=== PATIENT | female | born 1940 | race Caucasian/White ===

== ENCOUNTER → 2017-08-18 | Outpatient (CLI) | payer MEDICARE ==
[~2017-08-18] MED LIST: APRI0.372 PO; CALC500T8 PO; DEPA500T PO; MERC50TA PO; MULT-65 PO; PARO37.5 PO; POTA2.5T PO; VITA500T83 PO; VITACAP7 PO
--- NOTE | 2017-08-18 12:56 | RADRPT ---
EXAM DATE: 08/18/2017 12:42 PM EDT AGE/SEX: 77 years / Female INDICATIONS: Evaluate for pneumonia, pneumothorax or communicable disease. Pre op right knee replace ment. CLINICAL DATA: This is the patient's initial encounter. Patient reports that signs and symptoms have been present for 1 day and indicates a pain score of 0/10. MEDICAL/SURGICAL HISTORY: None. None. COMPARISON: No prior exams available for comparison. FINDINGS: The lungs are clear without infiltrate, nodule, or mass. There is no appreciable pleural effusion for technique. Heart and mediastinum are unremarkable. CONCLUSION: No acute cardiopulmonary disease. Electronically signed by: Kingston Avery MD 08/18/2017 12:55 PM EDT
[2017-08-18 13:00] LABS: AUTOMATED NEUTROPHIL # 5.8 TH/MM3 (1.8-7.7); BASOPHIL # 0.1 TH/MM3 (0-0.2); BASOPHIL % 0.7 % (0.0-2.0); EOSINOPHIL # 0.1 TH/MM3 (0-0.4); EOSINOPHIL % 0.9 % (0.0-4.0); HEMOGLOBIN 12.7 GM/DL (11.6-15.3); LYMPH % 23.3 % (9.0-44.0); MEAN CELL VOLUME 93.6 FL (80.0-100.0); MEAN CORPUSCULAR HEMOGLOBIN 31.2 PG (27.0-34.0); MEAN CORPUSCULAR HGB CONC 33.3 % (32.0-36.0); MEAN PLATELET VOLUME 9.6 FL (7.0-11.0); MONO % 5.7 % (0.0-8.0); MONOCYTE # 0.5 TH/MM3 (0-0.9); NEUT % 69.4 % (16.0-70.0); PLATELET COUNT 200 TH/MM3 (150-450); RED BLOOD COUNT 4.06 MIL/MM3 (4.00-5.30); RED CELL DISTRIBUTION WIDTH 16.4 % (11.6-17.2); WHITE BLOOD COUNT 8.4 TH/MM3 (4.0-11.0)
[2017-08-18 13:01] LABS: PROTHROMBIN TIME - PATIENT 10.2 SEC (9.8-11.6)
[2017-08-18 13:02] LABS: BILIRUBIN, URINE NEG (NEG); BLOOD, URINE NEG (NEG); GLUCOSE,URINE NEG (NEG); HYALINE CAST, URINE 2 /lpf (RARE); KETONE, URINE NEG (NEG); MUCUS URINE FEW /lpf (OCC); NITRITE,URINE NEG (NEG); URINE COLOR YELLOW (YELLW/STRAW); URINE LEUKOCYTE ESTERASE NEG (NEG)
[2017-08-18 13:11] LABS: BICARBONATE 26.4 MEQ/L (21.0-32.0); CALCIUM 8.5 MG/DL (8.5-10.1); CREATININE 1.25 MG/DL (0.50-1.00)
--- NOTE | 2017-08-18 15:56 | EKG ---
Date Performed: 08/18/2017 Time Performed: 11:45:32 PTAGE: 77 years EKG: Sinus rhythm POSSIBLE LEFT ATRIAL ENLARGEMENT MINIMAL ST DEPRESSION BORDERLINE ECG NO PREVIOUS TRACING DOCTOR: Mitchell Mai Interpretating Date/Time 08/18/2017 15:56:09
== END ==
LOC: CPRE 11:18
PROVIDERS: ATTEND Orthopaedic Surgery
DX: Z01.810 Encounter for preprocedural cardiovascular examination (principal); Z01.811 Encounter for preprocedural respiratory examination; Z01.812 Encounter for preprocedural laboratory examination; Z01.818 Encounter for other preprocedural examination; M17.11 Unilateral primary osteoarthritis, right knee; R94.31 Abnormal electrocardiogram [ECG] [EKG]
CPT/HCPCS: 36415; 71046; 80048; 81001; 85025; 85610; 93005

== ENCOUNTER 2017-09-02 05:09 | Inpatient (IN) | payer MEDICARE ==
--- NOTE | 2017-08-29 17:49 | MH ---
cc: Jaylan Rao MD DATE OF ADMISSION: 09/02/2017 ADMITTING DIAGNOSIS: Osteoarthritis of the right knee. HISTORY OF PRESENT ILLNESS: The patient is a 77-year-old white female who has had a longstanding history of pain involving her right knee. During the previous 8 years, she had experienced the onset of pain secondary to walking her dog and bumping her knee along the lateral aspect of the knee joint with no actual fall having occurred. She did not seek any immediate evaluation or treatment, but over the following years, continued to conform to conservative management, during which time she experienced a waxing and waning of soreness about the knee joint. She became increasingly more symptomatic with pain and later underwent orthopedic evaluation, at which time she was apparently diagnosed as having an arthritic condition and treated conservatively, which included use of anti-inflammatory medication, intraarticular steroid injection and physical therapy. Unfortunately, the patient became more symptomatic with the passage of time, experienced a frequent grinding sensation. She has subsequently resorted to taking hydrocodone for pain management. She was later seen by the undersigned physician in June of this past year and at that time, her x-ray studies did reveal hypertrophic changes along the lateral margin of the joint, especially involving the femoral condyle. The patient underwent an MRI scan, which identified severe osteoarthritis throughout the lateral compartment with complete loss of articular cartilage and a large degenerative tear of the lateral meniscus. At that time, findings and treatment options were reviewed. The pros and cons of continuing with conservative management versus operative intervention that might involve arthroscopic surgery versus total knee arthroplasty were outlined. Emphasis was made regarding the fact that the decision to proceed with surgery would be left entirely to the patient's discretion with recommendation being made that total knee arthroplasty in all likelihood would afford the patient a more long-term benefit. The patient had subsequently indicated her desire to proceed with operative treatment and had tentatively been scheduled to be admitted to the hospital in October of this past year. Unfortunately, prior to that admission, she was diagnosed as having Crohn disease, for which she did undergo a course of medical management that was extended over a several-month interval of time. Overall improvement was noted and she thus returned to the office in June of this year describing ongoing pain about her right knee. Her x-ray studies did reveal generalized degenerative changes with hypertrophic reaction more pronounced along the lateral joint line. Once again, findings and treatment options were reviewed. The patient again expressed her desire to proceed with operative intervention based upon her persistent symptoms, and in compliance with her wishes, she was scheduled for admission at this time in order that the above be accomplished. PAST MEDICAL HISTORY, HOSPITALIZATIONS AND SURGERIES: Have included small-bowel resection with a retrosigmoid resection, colonoscopy and Yanique pouch for history of small-bowel obstruction and chronic diverticulitis with later reversal of the colostomy. Surgical treatment of her right hand and wrist for traumatic injury that apparently involved some type of fracture, dislocation about the wrist joint. Abdominal hysterectomy, right inguinal herniorrhaphy, colonoscopy, podiatry surgery of her feet, hemorrhoidectomy, medical management of a nervous breakdown, and dental extraction. MEDICAL ILLNESSES: Include depression and chronic diarrhea. CURRENT MEDICATIONS: Lomotil has been taken on a p.r.n. basis, Depakote 500 mg, Paxil ER 325 mg, a multivitamin tablet, calcium 600 mg, Biotin 10,000 mcg, potassium 99 mg, vitamin B12, mercaptopurine 50 mg, Apriso 0.375 mg daily. ALLERGIES: THE PATIENT DESCRIBES A DRUG ALLERGY TO DILAUDID THAT APPARENTLY HAD BEEN ASSOCIATED WITH IRRATIONAL BEHAVIOR. She has tolerated hydrocodone and taken morphine in the past that was tolerated, but did become associated with some degree of constipation. REVIEW OF SYSTEMS: Wears glasses. No headaches, seizures, syncope. Frequent sinus congestion related to environmental irritants. No epistaxis. Diminished auditory acuity, for which bilateral hearing aids are utilized. No tinnitus. No bleeding gums. Partial upper and lower dentures. No cough, shortness of breath, upper respiratory infection, pneumonia, or tuberculosis. No angina or heart disease. Appetite good. Frequent diarrhea, especially related to fresh fruits and vegetables and fatty meats. No hepatitis, gallbladder disease or ulcers. There is a positive history of hemorrhoids. No urinary tract infection, no kidney stones. Fracture of the right wrist as described. Bilateral ankle fractures and toe fractures. Psychiatric intervention for depression. Remaining review of systems unremarkable and noncontributory. FAMILY HISTORY: The patient has been for more than 40 years. She has 2 living daughters, both indicated to be in good health. One daughter at 34 years of age with a history of breast cancer. Her family history is positive for hypertension, diabetes, heart disease, stroke, breast and uterine cancer. SOCIAL HISTORY: The patient completed a BS degree. 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 She denies active use of tobacco for many years, but had been less than 1 pack per day user for at least 19 years in the past. Ethanol consumption on a very limited basis. PHYSICAL EXAMINATION: VITAL SIGNS: Height 5 feet 1 inch, weight 137 pounds. GENERAL: An alert, oriented, and responsive 77-year-old white female who sits quietly upon the examination table with no apparent distress. HEAD, EARS, EYES, NOSE, AND THROAT: Pupils are equally round and reactive to light. Extraocular movements full. Sclerae clear. Nares clear. External auditory canals clear. Dental intact with dental implants in place. Mucous membranes pink and moist. Pharynx clear. NECK: Supple. Active range of motion without appreciable pain. Carotid pulse palpable bilaterally. Trachea midline. Thyroid without thyroid enlargement. LUNGS: Clear to auscultation and percussion. No CVA tenderness. No discomfort throughout the dorsolumbar spine. HEART: Regular rate and rhythm. No murmur or gallop. ABDOMEN: Soft, nontender, bowel sounds present. PELVIC: Per primary care physician. EXTREMITIES: Right knee: There is a mild fullness about the knee consistent with redundancy of soft tissue. No appreciable intraarticular effusion. Lateral joint line tenderness without palpable deformity. Apprehension and compression sign negative. Limited mobility in the 100+ degree range of flexion with pain at the extreme of motion. No collateral ligamentous instability. Cesar test and drawer sign negative. Pivot shift and Catarina sign minimally positive for lateral compartment pain. Straight leg raising unremarkable at 80 degrees. Satisfactory mobility of the right hip with no associated pain. Mild antalgic gait. NEUROLOGIC: Cranial nerves 2-12 grossly intact. IMPRESSION: Osteoarthritis, right knee. PLAN: Right total knee arthroplasty. The nature of the planned surgical procedure, the potential complications and risks associated, the expectations of surgery and the consent form were thoroughly reviewed with the patient prior to her admission to the hospital. Noy has indicated her full understanding regarding all of the above and given consent to proceed with treatment as outlined. Medical evaluation and clearance for surgery completed by her primary care physician, Dr. Vincent Moncada. Jaylan Rao MD NBS/SB , 05:14 PM , 05:48 PM
[2017-09-02] VITALS (9 sets, daily range): BP systolic 122–174; BP diastolic 59–81; PULSE 52–83; RESP 14–17; TEMP 94.5–98.2; O2SAT 95–99
[~2017-09-02] VITALS: Ht 154.9 cm; Wt 62.0 kg
[2017-09-02] MEDS ORDERED: SODIUM CHLORID 0.9% 500 ML IV PRN (05:30)
[2017-09-02] MEDS ORDERED: CHLORHEXIDINE GLUCONATE 2 % 1 PACK (2 CLOTHS) TOPICAL PRN (05:30)
[2017-09-02] MEDS ORDERED: POVIDONE IODINE 5% (ANTISEPSIS KIT) 4 APPLICATIONS EACH NARE PRN (05:30)
[2017-09-02] MEDS ORDERED: LACTATED RINGER'S 1000 ML IV PRN (05:30)
[2017-09-02] MEDS ORDERED: METOPROLOL TARTRATE 25 MG TAB PO PRN (05:30)
[2017-09-02] MEDS ORDERED: TRANEXAMIC ACID 1 GM PRIOR TO PROCEDURE IV SCH ×2 (05:45)
[2017-09-02] MEDS ORDERED: TRANEXAMIC ACID 1 GM POST-OP IV SCH ×2 (05:45)
[2017-09-02] MEDS ORDERED: POVIDONE IODINE 7.5% SCRUB 118 ML BOTTLE TOPICAL SCH (05:45)
[2017-09-02] MEDS ORDERED: ceFAZolin 2 GM PREMIX 50 ML IV SCH (05:45)
[2017-09-02] MEDS ORDERED: DIPH25CA PO (05:56)
[2017-09-02] MEDS ORDERED: LOMO2.5T PO (05:56)
[2017-09-02] MEDS ORDERED: ceFAZolin INJ 1,000 MG VIAL ONE (05:58)
[2017-09-02] MEDS ORDERED: ACETAMINOPHEN 1000 MG/100 ML 100 ML IV ONE (06:19)
[2017-09-02] MEDS ORDERED: FAMOTIDINE 20 MG/2 ML VIAL ONE (06:20)
[2017-09-02] MEDS ORDERED: MIDAZOLAM HCL 2 MG/2 ML VIAL ONE (06:20)
[2017-09-02] MEDS ORDERED: BUPIVACAINE HCL PF 0.5% 30 ML VIAL ONE (06:27)
[2017-09-02] MEDS ORDERED: BUPIVACAINE PF 0.75% DEX-WATER INJ 2 ML AMP ONE (06:32)
[2017-09-02] MEDS ORDERED: EPINEPHrine HCL PF/SF (1:1000) 1 MG/ML AMP I-OCULAR ONE (06:32)
[2017-09-02] MEDS ORDERED: SODIUM CHLORIDE 0.9% INJ 50 ML ONE (06:32)
[2017-09-02] MEDS ORDERED: DEXMEDETOMIDINE HCL 200 MCG/2 ML VIAL ONE ×2 (06:32→06:33)
[2017-09-02] MEDS ORDERED: ROPIVACAINE 0.5% P-ARTICULR SCH ×5 (07:00)
[2017-09-02] MEDS ORDERED: [UNRECOGNIZED DRUG - OTHER] P-ARTICULR SCH ×5 (07:00)
[2017-09-02] MEDS ORDERED: KETOROLAC P-ARTICULR SCH ×5 (07:00)
[2017-09-02] MEDS ORDERED: DO NOT ADM ANY ANTICOAGULANT DRUGS PRN (09:14)
[2017-09-02] MEDS ORDERED: ACETAMINOPHEN/HYDROcodone 325 MG/5 MG TAB PO PRN (09:30)
[2017-09-02] MEDS ORDERED: PHARMACY INFORMATION XX ONE (09:30)
[2017-09-02] MEDS ORDERED: Post-op Orders (for Pharmacy) XX ONE (09:30)
[2017-09-02] MEDS ORDERED: diphenhydrAMINE HCL 25 MG CAP PO PRN ×2 (09:30→15:15)
[2017-09-02] MEDS ORDERED: ZOLPIDEM TARTRATE 5 MG TAB PO PRN (09:30)
[2017-09-02] MEDS ORDERED: DOCUSATE SODIUM 100 MG CAP PO PRN (09:30)
[2017-09-02] MEDS ORDERED: ONDANSETRON ODT 4 MG TAB SL PRN (09:30)
[2017-09-02] MEDS ORDERED: NALOXONE HCL 0.4 MG/ML AMP IV PUSH PRN (09:30)
[2017-09-02] MEDS ORDERED: MORPHINE SULFATE 30 MG/30 ML PCA IV SCH (09:30)
[2017-09-02] MEDS ORDERED: ACETAMINOPHEN 325 MG TAB PO PRN (09:30)
[2017-09-02] MEDS: DEXT 5%-NACL 0.45% 1000 ML INJ 1,000 ML IV SCH ×2 (10:00→17:27)
--- NOTE | 2017-09-02 10:08 | MP ---
cc: Jaylan Rao MD DATE OF OPERATION: 09/02/2017 DATE OF OPERATION: 09/02/2017 PREOPERATIVE DIAGNOSIS: Osteoarthritis of the right knee. POSTOPERATIVE DIAGNOSIS: Osteoarthritis of the right knee. PROCEDURE PERFORMED: Right total knee arthroplasty. SURGEON: Jaylan Rao MD ANESTHESIA: Spinal. INDICATIONS: A 77-year-old white female with a longstanding history of right knee pain dating back at least 8 years when she had experienced onset of her symptoms secondary to walking activity and blunt trauma to the knee with no actual fall having occurred. She did not seek any immediate evaluation at that time, but over the following years continued to conform to conservative management during which time she experienced a waxing and waning soreness about the knee. She became increasingly more symptomatic with pain and later on the orthopedic evaluation was diagnosed as having an arthritic condition for which she was treated conservatively, which included use of anti-inflammatory medication, intraarticular steroid injection and physical therapy. Unfortunately, she became more symptomatic with the passage of time, experienced a frequent grinding sensation. She subsequently resorted to taking hydrocodone for pain management. She was later seen by the undersigned physician in June of this past year and at that time her x-ray studies did reveal hypertrophic changes along the lateral margin of the joint, especially involving the femoral condyle. She later underwent an MRI scan, which identified severe osteoarthritis throughout the lateral compartment with complete loss of articular cartilage and large degenerative tear involving the lateral meniscus. Findings and treatment options were reviewed. The pros and cons of continuing with conservative management versus operative intervention that would involve either arthroscopic surgery versus total knee arthroplasty were outlined. Emphasis was made regarding the fact that the decision to proceed with surgery would be left entirely to the patient's discretion with the recommendation being made that total knee arthroplasty would in all likelihood afford the patient a more favorable long-term benefit. She later indicated her desire to proceed with operative treatment and had tentatively been scheduled to be admitted to the hospital in October of this past year. Unfortunately, prior to that admission, she was diagnosed as having Crohn's disease for which she underwent an extended course of medical management over several months. Overall, medical improvement was noted but during this time she remained symptomatic with pain about her right knee for which she returned to the office in June describing ongoing pain. Her x-ray studies did reveal generalized degenerative changes with hypertrophic reaction along the lateral joint line. Once again findings and treatment options were reviewed. The patient expressed her desire to proceed with surgical treatment. Based upon her persistent symptoms and in compliance with her wishes, she was scheduled for admission in order that total knee arthroplasty be accomplished. FORMAT: Following induction of satisfactory spinal anesthesia as completed per the Department of Anesthesia, a tourniquet was established around the proximal portion of the right lower extremity. The extremity proper was isolated with a U-drape, thereafter being prepped with Betadine solution and draped into a sterile field in the routine manner. Prior to initiation of the actual procedure, the standard timeout protocol was completed. All parameters were appropriately addressed and confirmed by operating room personnel. The extremity was elevated for approximately 1 minute and the tourniquet thus inflated to 250 mmHg pressure. A sharp skin incision was initiated midline over the anterior aspect of the knee and developed through underlying subcutaneous tissue with hemostasis maintained by electrocautery. By deepening dissection, the anterior capsule was exposed, a medial capsulotomy completed and the patella subluxed in a lateral orientation. Examination of the joint space revealed degenerative changes being most pronounced about the lateral compartment where there was complete erosion of articular cartilage and subchondral bone exposed. Degenerative changes extended onto the lateral tibial plateau. The articular surface of the patella was resected with power saw. The 3 holed guide was utilized for establishing post-holes. The anterior cruciate ligament as well as medial and lateral meniscus structures were sharply excised. A centering hole was placed in the distal aspect of the femur, allowing positioning of the intramedullary guide. The distal femoral cutting jig was attached and the distal femur resected. AP measurement noted 62.5 mm sizing to be appropriate. The matching cutting block was positioned. Anterior, posterior and chamfer cuts were completed. Tibial plateau was thereafter subluxed in an anterior orientation allowing positioning of the extramedullary guide. The tibial plateau was resected and measured with 71 mm sizing determined to be satisfactory. A trial reduction followed utilizing a 62.5 mm anatomic femoral component, a 71 mm tibial base with a 10 mm bearing insert. The knee was readily reduced and carried through a passive range of motion with stability being demonstrated at both 0 and 90 degrees flexed posture to varus and valgus stress. Orientation was confirmed as being appropriate with measurement of the pelvic guide through the mechanical axis of the knee. Trial reduction followed utilizing a 31 mm standard patellar button. Once again good tracking was noted with no tendency towards subluxation. All trial components being removed, the remaining portion of the proximal tibia was prepared for insertion of the permanent component. An autogenous bone plug was inserted into the distal femoral guide hole and thereafter a preparation of Palacos bone cement was utilized in inserting knee components in a sequential fashion, which included a 71 mm fixed cruciate tibial plate, to which a 10 mm Vanguard tibial bearing insert was secured with a locking joy. A 62.5 mm Vanguard femoral component was firmly seated onto the distal femur, excess cement being removed and thereafter the 31 mm standard 3 post-patellar button was attached and maintained in place with patellar clamp while cement hardening was completed. Final range of motion assessment noted good tracking and stability throughout the knee. Irrigation repeated with hemostasis maintained. Autovac drain tubes were inserted through superior stab wounds. The capsule was repaired with 0 Vicryl suture. The remaining portion of the wound was closed in layers in the routine manner, skin margins being reapproximated with a running subcuticular 3-0 Vicryl suture over which Steri-Strips were applied. Xeroform gauze and a bulky dry sterile dressing placed. Tourniquet deflated after 41 minutes of tourniquet time, the extremity being supported in a canvas knee splint. Anesthesia was discontinued and the patient thus transferred to a hospital bed and returned to the recovery room in satisfactory condition, having tolerated her operative procedure well. Estimated blood loss was approximately 100 mL as determined per Anesthesia. All implants were of the [employer] pavilion cutter. MD ERNST Jewell/SB , 09:25 AM , 10:07 AM
[2017-09-02] MEDS ORDERED: TRANEXAMIC ACID INJ 1,000 MG in SODIUM CHLORIDE 0.9% INJ 100 ML IV SCH (10:14)
--- NOTE | 2017-09-02 10:44 | RADRPT ---
EXAM DATE: 09/02/2017 10:37 AM EDT AGE/SEX: 77 years / Female INDICATIONS: Post op right knee surgery. CLINICAL DATA: This is the patient's initial encounter. Patient reports that signs and symptoms have been present for 1 day and indicates a pain score of 0/10. MEDICAL/SURGICAL HISTORY: None. None. COMPARISON: No prior exams available for comparison. FINDINGS: AP and lateral views of the right knee demonstrate metallic hardware in place at the distal femur and proximal tibia with a radiolucent patellar component. Surgical drain is present. No unexpected findi ng is seen. CONCLUSION: Expected changes following recent right total knee arthroplasty, as above. Electronically signed by: Vincent Ramirez MD 09/02/2017 10:42 AM EDT
[2017-09-02] MEDS ORDERED: LIDOCAINE HCL 1% PF 5 ML SYRINGE OTHER ONE (12:00)
[2017-09-02] MEDS ORDERED: LACTATED RINGER'S 1000 ML INJ 1,000 ML IV ONE (12:00)
[2017-09-02] MEDS ORDERED: ePHEDrine/NS 25 MG/5 ML SYRINGE IV ONE (12:00)
[2017-09-02] MEDS ORDERED: GLYCOPYRROLATE 1 MG/5 ML SYRINGE IV PUSH ONE (12:00)
[2017-09-02] MEDS ORDERED: PROPOFOL 200 MG/20 ML AMP IV ONE (12:00)
--- NOTE | 2017-09-02 13:06 | HHI.FF ---
Face to Face Verification Diagnosis: (1) DJD (degenerative joint disease) of knee Physical Therapy Gait training Knee: Total knee, Protocol: Right, Full weight bearing Right LE Weight Bearing: WB as tolerated Right LE Range of Motion: Active ROM Nursing Dressing Changes: Daily dressing change I have seen patient Noy Hunter on 09/02/17. My clinical findings support the need for the requested home health care services because: Limited ability to care for self High risk of falls I certify that my clinical findings support that this patient is homebound because: Post-op weakness Unsteady gait/balance Unsafe to leave home unassisted Jaylan Rao MD Sep 02, 2017 13:06
[2017-09-02] MEDS: PCA - TOTAL MG MORPHINE DELIVERED PER SHIFT SCH ×2 (14:00→22:00)
[2017-09-02] MEDS ORDERED: NON-FORMULARY DRUG (Ascorbic Acid ER (Vitamin C ER) 1,000 MG) PO SCH (15:15)
[2017-09-02] MEDS ORDERED: NON-FORMULARY DRUG (Multiple Vitamin (Multi-Vitamin Daily) 1 TAB) PO SCH (15:15)
[2017-09-02] MEDS ORDERED: MESALAMINE PO SCH (15:15)
[2017-09-02] MEDS ORDERED: NON-FORMULARY DRUG (B-Complex Vitamins (B Complex) 1 CAP) PO SCH (15:15)
[2017-09-02] MEDS ORDERED: DIPHENOXYLATE/ATROPINE 2.5 MG/0.025 MG TAB PO PRN (15:15)
--- NOTE | 2017-09-02 15:24 | PD.CONS ---
[facility] By Dr. Rao Reason for Consult Assist with medical management. Primary Care Physician Vincent Moncada, Diagnoses: History of Present Illness Patient is a 77-year-old female with primary medical history osteo-arthritis, depression, small bowel resection with rectosigmoid resection, Davila's pouch for small bowel obstruction and chronic diverticulitis with reversal colostomy who initially came into the hospital for an elective surgery secondary to severe right knee osteoarthritis with pain. She is status post right total knee arthroplasty by Dr. Rao. Consulted for assistance with medical management. Patient seen and examined today. Daughter at bedside. Reports she is doing well. States she has no pain, but on the lateral side of the knee she felt like a 2/10. Denies SOB/ dyspnea. Denies chest pain, palpitations, headaches, dizziness. Denies fevers, chills, n/v. Denies dysuria. Patient reports history of colitis. Daughter states that she has been taking Lomotil and mercaptopurine to control the colitis. States that she always has been diarrhea. She follows Dr. Reeder in the outpatient as her GI. She has been tested according to daughter multiple times of Clostridium difficile and has been negative. But states that if she ever gets tested at the hospital before starting her on any antibiotic we will need to consult with Dr. Reeder. Review of Systems Except as stated in HPI: all other systems reviewed are Neg Past Family Social History Allergies: Coded Allergies: hydromorphone (Verified Allergy, Severe, Hallucinations, 09/02/17) Past Medical History Chronic diverticulitis status post bowel resection Osteoarthritis Anxiety Depression Past Surgical History Small bowel resection with retrosigmoid resection Davila's pouch for history of small bowel obstruction Chronic diverticulitis with reversal of colostomy Right hand surgery Abdominal hysterectomy Right inguinal herniorrhaphy Colonoscopy Hemorrhoidectomy Foot surgery Reported Medications Reported Meds & Active Scripts Active Reported Diphenhydramine (Diphenhydramine HCl) 25 Mg Cap 25 Mg PO HS PRN Lomotil (Diphenoxylate-Atropine) 2.5-0.025 Mg Tab 1 Tab PO Q6H PRN Vitamin C ER (Ascorbic Acid) 500 Mg Saman 1,000 Mg PO DAILY Potassium Gluconate 550 Mg (90 Mg) Tab 1 Tab PO DAILY B Complex (B-Complex Vitamins) 1 Cap 1 Cap PO DAILY Multi-Vitamin Daily (Multiple Vitamin) 1 Tab Tab 1 Tab PO DAILY Calcium Oyster Shell (Calcium Carbonate) 1,250 Mg Tab 1,250 Mg PO DAILY NEB 1,250 mg calcium carbonate (500 mg elemental calcium) Paroxetine ER (Paroxetine HCl) 37.5 Mg Tab 37.5 Mg PO DAILY Depakote DR (Divalproex Sodium) 500 Mg Tabdr 500 Mg PO BID Mercaptopurine 50 Mg Tab 50 Mg PO DAILY Apriso (Mesalamine) 0.375 Gm Caper 4 Cap PO DAILY Active Ordered Medications Current Medications Medications (Trade) Dose Ordered Sig/Nancy Route Start Time Stop Time Status Last Admin Lactated Ringer's 1,000 ml @ 30 mls/hr Q24H PRN IV 09/02/17 05:30 09/05/17 05:29 09/02/17 06:00 Sodium Chloride 500 ml @ 30 mls/hr [id number] PRN IV 09/02/17 05:30 09/05/17 05:29 (Lopressor) 25 mg UTILITY LOCATOR PRN PO 09/02/17 05:30 09/05/17 05:29 (Betadine 5% Antisepsis Kit) 1 applic UTILITY LOCATOR PRN EACH NARE 09/02/17 05:30 09/05/17 05:29 09/02/17 06:00 (Chlorhexidine 2% Cloth) 3 pack UTILITY LOCATOR PRN TOPICAL 09/02/17 05:30 09/05/17 05:29 09/02/17 05:30 (Betadine 7.5% Scrub) 1 applic ONCE TOPICAL 09/02/17 05:45 09/05/17 05:44 09/02/17 06:00 Cefazolin Sodium/ Dextrose 50 ml @ 100 mls/hr UTILITY LOCATOR IV 09/02/17 05:45 09/05/17 05:44 09/02/17 07:25 Ropivacaine 24.63 ml/Ketorolac Tromethamine 30 mg/Epinephrine HCl 0.5 mg/ Clonidine 80 mcg/ Sodium Chloride 67 ml @ 134 mls/hr ONCE P-ARTICULR 09/02/17 07:00 09/03/17 06:59 09/02/17 07:47 Cefazolin Sodium 1000 mg/Sodium Chloride 100 ml @ 200 mls/hr Q6H IV 09/02/17 13:00 09/03/17 01:29 09/02/17 12:59 ([place] 5-325 Mg) 1 tab Q4H PRN PO 09/02/17 09:30 ([place] 5-325 Mg) 2 tab Q4H PRN PO 09/02/17 09:30 (Tylenol) 650 mg Q6H PRN PO 09/02/17 09:30 (Zofran Odt) 4 mg Q6H PRN SL 09/02/17 09:30 (Colace) 100 mg BID PRN PO 09/02/17 09:30 (Ambien) 5 mg HS PRN PO 09/02/17 09:30 (Narcan Inj) 0.4 mg UNSCH PRN IV PUSH 09/02/17 09:30 (Benadryl) 25 mg Q6H PRN PO 09/02/17 09:30 (Morphine 1 Mg/ ml HAZARD WASTE HANDLER) 30 mg UNSCH IV 09/02/17 09:30 09/04/17 09:29 09/02/17 11:08 HAZARD WASTE HANDLER Dosage Infused (Pha) 1 Q8HR .XX 09/02/17 14:00 09/04/17 13:59 Dextrose/Sodium Chloride 1,000 ml @ 125 mls/hr Q8H IV 09/02/17 09:27 09/02/17 10:00 ([facility] Nursing Information) ALL NURSING DEPARTME... UNSCH PRN .XX 09/02/17 09:14 09/03/17 09:13 (Oscal) 1,250 mg DAILY NEB PO 09/03/17 08:00 UNV (Benadryl) 25 mg HS PRN PO 09/02/17 15:15 UNV (Lomotil Tab) 1 tab Q6H PRN PO 09/02/17 15:15 UNV (Depakote Dr) 500 mg BID PO 09/02/17 21:00 UNV (Purinethol) 50 mg DAILY PO 09/02/17 15:15 UNV (Paxil Cr) 37.5 mg DAILY PO 09/02/17 15:15 UNV Non-Formulary Medication 1,000 mg DAILY PO 09/02/17 15:15 UNV Non-Formulary Medication 1 cap DAILY PO 09/02/17 15:15 UNV Non-Formulary Medication 4 cap DAILY PO 09/02/17 15:15 UNV Non-Formulary Medication 1 tab DAILY PO 09/02/17 15:15 UNV Non-Formulary Medication 1 tab DAILY PO 09/03/17 09:00 UNV Family History Mother had diabetes. Father had a stroke. Both parents of aneurysm Social History Very rare alcohol use Former smoker, 1 pack per day 19 years Denies illicit drug Physical Exam Vital Signs Vital Signs Date Time Temp Pulse Resp B/P (MAP) Pulse Ox O2 Delivery O2 Flow Rate FiO2 09/02/17 12:40 56 14 122/73 (89) 96 09/02/17 12:33 99 Nasal Cannula 2.00 09/02/17 12:10 61 14 137/71 (93) 99 Nasal Cannula 2 09/02/17 11:08 14 09/02/17 11:00 63 14 148/79 (102) 100 Nasal Cannula 2 09/02/17 10:00 60 14 125/58 (80) 100 Nasal Cannula 2 09/02/17 09:45 61 14 100/55 (70) 100 Nasal Cannula 2 09/02/17 09:30 64 14 102/58 (73) 98 Nasal Cannula 2 09/02/17 09:15 96.5 70 14 110/59 (76) 95 Nasal Cannula 2 09/02/17 06:15 52 09/02/17 05:58 97.7 52 20 175/83 (113) 100 Physical Exam GENERAL: This is a well-nourished, well-developed patient, in no apparent distress. SKIN: Warm and dry. HEENT: Normocephalic. Pupils equal round and reactive. Nose without bleeding. Airway patent. NECK: Trachea midline. No JVD. Supple. CARDIOVASCULAR: Regular rate and rhythm without murmurs, gallops, or rubs. RESPIRATORY: Clear to auscultation. Breath sounds equal bilaterally. No wheezes , rales, or rhonchi. GASTROINTESTINAL: Abdomen soft, non-tender, nondistended. Bowel Sounds normoactive x4. MUSCULOSKELETAL: Extremities without clubbing, cyanosis. Right lower extremity Steve wrap with Hemovac in place. Trace edema right lower extremity NEUROLOGICAL: Awake and alert. Oriented to time, place, person. No focal neuro deficit. Moves all extremities. Normal speech. Imaging Last Impressions Knee X-Ray 09/02/1728 Signed Impressions: CONCLUSION: Expected changes following recent right total knee arthroplasty, as above. Assessment and Plan Assessment and Plan Patient is a 77-year-old female with primary medical history osteo-arthritis, depression, small bowel resection with rectosigmoid resection, Davila's pouch for small bowel obstruction and chronic diverticulitis with reversal colostomy who initially came into the hospital for an elective surgery secondary to severe right knee osteoarthritis with pain. She is status post right total knee arthroplasty by Dr. Rao. Consulted for assistance with medical management. Status post right total knee arthroplasty by Dr. rao -Weightbearing status by orthopedic surgeon -Physical therapy eval and treat -Pain management Colitis Chronic diarrhea -Continue home medication Lomotil, mercaptopurine -Monitor for worsening diarrhea, may send stool for C. difficile if it is worsening Depression, anxiety -Continue Depakote, paroxetine DVT prop SCDs, chemical prophylaxis by orthopedic surgeon Code Status Full code Discussed Condition With Patient, nursing, daughter DannaJorgehitesh KENT Sep 02, 2017 15:24
[2017-09-02] MEDS ORDERED: PILL SPLITTER OTHER PRN (15:45)
[2017-09-02] MEDS: PARoxetine HCL 37.5 MG CONTROLLED RELEASE TAB PO SCH (18:00)
[2017-09-02] MEDS: MERCAPTOPURINE 50 MG TAB PO SCH (18:02)
[2017-09-02] MEDS: ASCORBIC ACID 500 MG TAB PO SCH (21:10)
[2017-09-02] MEDS: DIVALPROEX DR 500 MG TABEC PO SCH (21:10)
[2017-09-03] MEDS: DEXT 5%-NACL 0.45% 1000 ML INJ 1,000 ML IV SCH ×3 (01:27→17:27)
[2017-09-03 04:35] VITALS: BP 98/57; PULSE 78; RESP 17; TEMP 99.8; O2SAT 98
[2017-09-03 05:22] LABS: HEMATOCRIT 28.1 % (35.0-46.0); HEMOGLOBIN 9.6 GM/DL (11.6-15.3)
[2017-09-03 05:51] LABS: CALCIUM 7.5 MG/DL (8.5-10.1)
[2017-09-03] MEDS: PCA - TOTAL MG MORPHINE DELIVERED PER SHIFT SCH ×3 (06:06→22:00)
[2017-09-03] MEDS ORDERED: HYDR-3516 PO (06:22)
[2017-09-03] MEDS ORDERED: ASPI-183 PO (06:22)
[2017-09-03] MEDS ORDERED: WALKER WHEELS/F1 MIS (06:24)
[2017-09-03 08:00] VITALS: BP 108/57; PULSE 81; RESP 17; TEMP 98.6; O2SAT 96
[2017-09-03] MEDS: MULTIVITAMIN TAB PO SCH (08:33)
[2017-09-03] MEDS: CALCIUM CARBONATE 1.25 GM (CA 500 MG) TAB PO SCH (08:33)
[2017-09-03] MEDS: VITAMIN B COMPLEX/VIT C TAB PO SCH (08:33)
[2017-09-03] MEDS: PARoxetine HCL 37.5 MG CONTROLLED RELEASE TAB PO SCH (08:33)
[2017-09-03] MEDS: DIVALPROEX DR 500 MG TABEC PO SCH ×2 (08:33→20:09)
[2017-09-03] MEDS: ASCORBIC ACID 500 MG TAB PO SCH ×2 (08:34→20:09)
[2017-09-03] MEDS: MERCAPTOPURINE 50 MG TAB PO SCH (08:36)
[2017-09-03] MEDS ORDERED: [UNRECOGNIZED DRUG - OTHER] PO SCH (09:00)
[2017-09-03] MEDS ORDERED: NON-FORMULARY DRUG (Potassium Gluconate 1 TAB) PO SCH (09:00)
[2017-09-03] MEDS ORDERED: [UNRECOGNIZED DRUG - OTHER] PO SCH (09:00)
--- NOTE | 2017-09-03 09:05 | HHI.PR ---
Subjective Remarks Follow-up visit status post right total knee arthroplasty, colitis with chronic diarrhea secondary to multiple bowel resections, depression, anxiety. Patient seen and examined today. Daughter at the bedside. Reports she is doing well. States pain is manageable. States that she had an episode of confusion last night possibly aggravated by Ambien use. Requesting for Ambien to be discontinued. States she has wet the bed and had urinated over the place last night. Otherwise, denies pain and discomfort. Denies SOB/ dyspnea. Denies chest pain, palpitations, headaches, dizziness. Denies fevers, chills, n/v/d. Denies dysuria. Objective Vitals Vital Signs Date Time Temp Pulse Resp B/P (MAP) Pulse Ox O2 Delivery O2 Flow Rate FiO2 09/03/17 07:01 Room Air 09/03/17 06:06 18 09/03/17 04:35 99.8 78 17 98/57 (71) 98 09/02/17 23:15 98.2 72 17 174/81 (112) 96 09/02/17 22:00 18 09/02/17 21:26 97 09/02/17 20:25 97.4 62 16 149/72 (97) 97 09/02/17 15:59 97 21 09/02/17 15:45 94.5 64 16 122/79 (93) 95 09/02/17 12:40 56 14 122/73 (89) 96 09/02/17 12:33 99 Nasal Cannula 2.00 09/02/17 12:10 61 14 137/71 (93) 99 Nasal Cannula 2 09/02/17 11:08 14 09/02/17 11:00 63 14 148/79 (102) 100 Nasal Cannula 2 09/02/17 10:00 60 14 125/58 (80) 100 Nasal Cannula 2 09/02/17 09:45 61 14 100/55 (70) 100 Nasal Cannula 2 09/02/17 09:30 64 14 102/58 (73) 98 Nasal Cannula 2 09/02/17 09:15 96.5 70 14 110/59 (76) 95 Nasal Cannula 2 I/O 09/02/17 09/02/17 09/02/17 09/03/17 09/03/17 09/03/17 07:00 15:00 23:00 07:00 15:00 23:00 Intake Total 1200 ml 360 ml Output Total 700 ml 120 ml 150 ml Balance 500 ml -120 ml 210 ml Intake Oral 360 ml Other 1200 ml Output Urine Total 600 ml Drainage Total 120 ml 150 ml Estimated Blood Loss 100 ml # Voids 5 # Bowel Movements 0 Result Diagram: 09/03/17 0437 09/03/17 0437 Imaging Last Impressions Knee X-Ray 09/02/17 6530 Signed Impressions: CONCLUSION: Expected changes following recent right total knee arthroplasty, as above. Objective Remarks GENERAL: This is a well-nourished, well-developed patient, in no apparent distress. SKIN: Warm and dry. HEENT: Normocephalic. Pupils equal round and reactive. Nose without bleeding. Airway patent. NECK: Trachea midline. No JVD. Supple. CARDIOVASCULAR: Regular rate and rhythm without murmurs, gallops, or rubs. RESPIRATORY: Clear to auscultation. Breath sounds equal bilaterally. No wheezes , rales, or rhonchi. GASTROINTESTINAL: Abdomen soft, non-tender, nondistended. Bowel Sounds normoactive x4. MUSCULOSKELETAL: Extremities without clubbing, cyanosis. Right lower extremity Steve wrap with Hemovac in place scant serosanguineous drain. Trace edema right lower extremity NEUROLOGICAL: Awake and alert. Oriented to time, place, person. No focal neuro deficit. Moves all extremities. Normal speech. A/P Assessment and Plan Patient is a 77-year-old female with primary medical history osteo-arthritis, depression, small bowel resection with rectosigmoid resection, Davila's pouch for small bowel obstruction and chronic diverticulitis with reversal colostomy who initially came into the hospital for an elective surgery secondary to severe right knee osteoarthritis with pain. She is status post right total knee arthroplasty by Dr. Roblero. Consulted for assistance with medical management. Status post right total knee arthroplasty by Dr. roblero -Weightbearing status by orthopedic surgeon -Physical therapy eval and treat -Pain management Colitis Chronic diarrhea -Continue home medication Lomotil, mercaptopurine, mesalamine -Patient may use own home medications -Monitor for worsening diarrhea, may send stool for C. difficile if it is worsening Depression, anxiety -Continue Depakote, paroxetine -Discontinue Ambien use for as needed insomnia. DVT prop SCDs, chemical prophylaxis by orthopedic surgeon Stable from Hospitalist standpoint. We will sign off. Reconsult as needed. Clear for discharge Discharge Planning Plan to DC home with home health care when cleared by orthopedic surgeon. Jim Clay Sep 03, 2017 9:05 am
[2017-09-03 09:30] VITALS: BP 86/54; PULSE 74; O2SAT 96
[2017-09-03 12:00] VITALS: BP 93/54; PULSE 83; RESP 17; TEMP 98.6; O2SAT 96
[2017-09-03 16:00] VITALS: BP 118/63; PULSE 85; RESP 18; TEMP 98.8; O2SAT 96
[2017-09-03] MEDS: ACETAMINOPHEN/HYDROcodone 325 MG/5 MG TAB PO PRN (20:09)
[2017-09-03 20:50] VITALS: BP 100/55; PULSE 73; RESP 17; TEMP 98.1; O2SAT 93; O2SAT 94
[2017-09-04 00:55] VITALS: BP 139/64; PULSE 69; RESP 17; TEMP 98; O2SAT 99
[2017-09-04] MEDS: ACETAMINOPHEN/HYDROcodone 325 MG/5 MG TAB PO PRN ×2 (01:12→08:28)
[2017-09-04] MEDS: DEXT 5%-NACL 0.45% 1000 ML INJ 1,000 ML IV SCH ×3 (01:27→10:23)
[2017-09-04 04:40] VITALS: BP 93/52; PULSE 63; RESP 17; TEMP 98.1; O2SAT 93
[2017-09-04] MEDS: PCA - TOTAL MG MORPHINE DELIVERED PER SHIFT SCH (06:00)
--- NOTE | 2017-09-04 06:58 | MD ---
cc: Jaylan Rao MD, John R DO DATE OF DISCHARGE: 09/04/2017 ADMITTING DIAGNOSIS: Osteoarthritis of the right knee. DISCHARGE DIAGNOSIS: Osteoarthritis of the right knee. HISTORY: The patient is a 77-year-old white female with a longstanding history of right knee pain extending back at least 8 years when she had noted at the onset of her symptoms secondary to walking her dog and bumping her knee without an actual fall occurring. She did not seek any immediate evaluation and treatment over the following years was primarily conservative in nature during which time the patient described a waxing and waning of soreness about her knee. She became increasingly more symptomatic with pain and later underwent orthopedic evaluation and was diagnosed as having an arthritic condition for which she was treated conservatively, which included anti-inflammatory medication, intraarticular steroid injection and physical therapy. Unfortunately, she became more symptomatic with the passage of time experiencing a frequent grinding sensation. She had begun taking hydrocodone for pain management. She was later seen by the undersigned physician in June of this past year and at that time, her x-ray studies did reveal hypertrophic changes along the lateral margin of the joint, especially involving the femoral condyle. A subsequent MRI scan identified severe osteoarthritis throughout the lateral compartment and complete loss of articular cartilage and a large degenerative tear involving the lateral meniscus. At that time, the findings were reviewed and treatment options discussed. The pros and cons of continuing with conservative management versus operative intervention that would involve arthroscopic surgery as opposed to total knee arthroplasty were outlined. Emphasis was made regarding the fact that the decision to proceed with surgery would be left entirely to the patient's discretion with recommendation being made for total knee arthroplasty as being a more favorable course of management for long-term benefit. The patient subsequently indicated her desire to proceed with operative treatment and had tentatively been scheduled to be admitted in October this past year. Unfortunately, prior to that time, she was diagnosed with Crohn's disease for which she did not undergo a course of medical management that extended over several months. Her medical condition did improve, but her knee symptoms persisted and she later returned to the office for further disposition, at which time x-ray studies revealed degenerative changes with hypertrophic reaction more pronounced along the lateral joint line. Once again, findings and treatment options were reviewed. At that time, the patient expressed her desire to proceed with surgery as had previously been planned and in compliance with her wishes, she was scheduled for admission in order that the above be accomplished. Her physical examination at the time of admission revealed a mild fullness about the right knee consistent with redundancy of soft tissue. There was no appreciable intraarticular effusion, lateral joint line tenderness without palpable deformity. Apprehension and compression sign negative. Limited mobility in the 100+ degree range of flexion with pain at the extreme of motion. No collateral ligamentous instability. Cesar test and drawer sign negative. Pivot shift and Catarina sign positive for lateral compartment pain. Straight leg raising unremarkable at 80 degrees. Satisfactory mobility of the right hip with no associated pain. Mild antalgic gait. HOSPITAL COURSE: Prior to admission to the hospital, the patient had undergone medical evaluation and clearance for surgery as completed by her primary care physician, Dr. Vincent Moncada. She was taken to the operating room on 02 September 2017 and on that date underwent a right total knee arthroplasty completed in an uncomplicated manner. The patient was noted to have tolerated her operative procedure well. Her postoperative course, stable thereafter. Hemoglobin and hematocrit assessment postoperatively was 9.6 and 28.1 respectively. The patient was progressively mobilized under the guidance of physical therapy being permitted weightbearing to tolerance about the right lower extremity. Followup examination of her surgical wound noted to be intact, healing favorably with no evidence of infection. Medical followup per the hospitalist service. DVT prophylaxis initiated. Poultry Feed Supervisor consulted to assist with discharge planning. The patient had expressed her desire to be discharged home and continue her rehabilitation on an outpatient basis. Plans were finalized in this regard and pending medical clearance, she was scheduled for discharge on the second postoperative day, at which time she was noted to be making favorable progress with regards to her rehabilitation program. She was scheduled to be seen in office followup in approximately 4 weeks. CONDITION AT THE TIME OF DISCHARGE: Stable. PROGNOSIS: Favorable. DISCHARGE MEDICATIONS: Include: Hydrocodone 5/325, #40, aspirin 325 mg 1 tab twice daily for 3 weeks, #40. Jaylan Rao MD NBS/DL , 06:36 AM , 06:56 AM
[2017-09-04 08:00] VITALS: BP 113/64; PULSE 79; RESP 18; TEMP 97.8; O2SAT 100
[2017-09-04] MEDS: VITAMIN B COMPLEX/VIT C TAB PO SCH (08:27)
[2017-09-04] MEDS: MULTIVITAMIN TAB PO SCH (08:27)
[2017-09-04] MEDS: ASCORBIC ACID 500 MG TAB PO SCH (08:28)
[2017-09-04] MEDS: CALCIUM CARBONATE 1.25 GM (CA 500 MG) TAB PO SCH (08:28)
[2017-09-04] MEDS: PARoxetine HCL 37.5 MG CONTROLLED RELEASE TAB PO SCH (08:29)
[2017-09-04] MEDS: DIVALPROEX DR 500 MG TABEC PO SCH (08:35)
[2017-09-04] MEDS: MERCAPTOPURINE 50 MG TAB PO SCH (08:36)
[2017-09-04 12:12] VITALS: BP 94/50; PULSE 76; RESP 18; TEMP 98; O2SAT 96
== END 2017-09-04 14:05 | disposition home health service (06) | DRG 470 ==
LOC: HSDI 05:09 → N06A 12:19
PROVIDERS: ADMIT Orthopaedic Surgery; ATTEND Orthopaedic Surgery
PROC: 0SRC0J9 Replacement of Right Knee Joint with Synthetic Substitute, Cemented, Open Approach (ICD-10-PCS; principal; 2017-09-02 06:48)
DX: M17.11 Unilateral primary osteoarthritis, right knee (principal); K50.90 Crohn's disease, unspecified, without complications; M23.200 Derangement of unspecified lateral meniscus due to old tear or injury, right knee; F32.9 Major depressive disorder, single episode, unspecified; F41.9 Anxiety disorder, unspecified; Z87.891 Personal history of nicotine dependence
CPT/HCPCS: 73560; 80048; 85014; 85018; 86850; 86900; 86901; 88305; 94150; C1776; J0131; J0171; J0690; J0735; J1885; J2250; J2270; J2795; J3010; J7120; L1830